=== PATIENT | male | born 1960 | race Caucasian/White ===

== ENCOUNTER 2019-03-20 12:16 | Emergency (ER) | payer SELFPAY ==
[~2019-03-20] VITALS: Ht 172.7 cm; Wt 87.1 kg
[~2019-03-20 12:16] MED LIST: HYDR-2145 PO; LOSA100T14 PO; METF10007 PO
--- NOTE | 2019-03-20 12:59 | PHYS DOC ---
Past Medical History Past Medical History: Diabetes-Type II, Hypertension, Other Additional Past Medical Histor: SVT Additional Past Surgical Histo: cataracts, cardiac ablation, hernia, rotator cuff, carpal tunnel Smokin Pack Per Day Alcohol Use: Heavy Drug Use: None Adult General Chief Complaint Chief Complaint: SHORTNESS OF BREATH HPI HPI Pt is a 58 YO M with PMH of chronic pain, cervical stenosis, and HTN that is presenting to the ED with a chief complaint of increasing pain and SOB. Pt states that he has not felt well since discharge from his last hospital stay a couple months ago. Pt does not have insurance and was unable to follow up for physical therapy and pain management, pt was also diagnosed with HF at that time. Pt states that he is presenting today because the pain and SOB have gotten out of control. Pt reports increasing numbness and tingling of his hands and feet. Pt denies loss of bowel or bladder function, saddle anesthesia, and pt denies increased LE edema. Pt was discharged with norco but those don't help with the pain, nothing makes the pain better or worse. Pt denies any new falls or trauma. Review of Systems Review of Systems Constitutional: Denies fever or chills Eyes: Denies redness or eye pain HENT: Denies nasal congestion or sore throat Respiratory: Denies cough, reports increasing shortness of breath Cardiovascular: Denies chest pain or palpitations GI: Denies nausea and vomiting, reports mild abdominal pain : Denies dysuria or hematuria Musculoskeletal: Reports back pain and joint pain Integument: Denies rash or skin lesions Neurologic: Denies headache, focal weakness or sensory changes Complete systems were reviewed and found to be within normal limits, except as documented in this note. Current Medications Current Medications Current Medications Medications (Trade) Dose Ordered Sig/Tip Start Time Stop Time Status Last Admin Dose Admin Dexamethasone Sodium Phosphate (Decadron) 10 mg 1X ONCE 03/20/19 13:30 03/20/19 13:31 DC 03/20/19 13:03 10 MG Fentanyl Citrate (Fentanyl 2ml Vial) 100 mcg STK-MED ONCE 03/20/19 14:14 03/20/19 14:15 DC Ketorolac Tromethamine (Toradol 15mg Vial) 15 mg 1X ONCE 03/20/19 13:30 03/20/19 13:31 DC 03/20/19 13:02 15 MG Magnesium Chloride (Mag Delay) 64 mg 1X ONCE 03/20/19 14:15 03/20/19 14:16 DC 03/20/19 13:57 64 MG Orphenadrine Citrate (Norflex) 60 mg 1X ONCE 03/20/19 13:30 03/20/19 13:31 DC 03/20/19 13:03 60 MG Allergies Allergies Allergies Coded Allergies Type Severity Reaction Last Updated Verified No Known Drug Allergies 03/02/19 No Physical Exam Physical Exam Constitutional: Well developed, well nourished, no acute distress, non-toxic appearance HENT: Normocephalic, atraumatic, oropharynx moist Eyes: PERRL, EOMI, conjunctiva normal, no discharge Neck: Normal range of motion, no tenderness, supple Cardiovascular: Heart rate normal, regular rhythm Lungs & Thorax: Bilateral breath sounds clear to auscultation, no wheezing Abdomen: Soft, mild generalized abdominal tenderness, non-distended, non- peritoneal Skin: Warm, dry, no erythema, no rash Back: Cervical paraspinal tenderness, no midline tenderness Extremities: No tenderness, ROM intact, no edema Neurologic: Alert and oriented X 3, normal motor function, normal sensory function, no focal deficits noted Psychologic: Affect normal, judgement normal, mood normal Current Patient Data Vital Signs Vital Signs Date Time Temp Pulse Resp B/P (MAP) Pulse Ox O2 Delivery O2 Flow Rate FiO2 03/20/19 14:20 85 18 144/85 (104) 97 03/20/19 12:30 Room Air Lab Values Laboratory Tests Test 03/20/19 12:55 White Blood Count 9.6 x10^3/uL (4.0-11.0) Red Blood Count 4.00 x10^6/uL (4.30-5.70) L Hemoglobin 12.7 g/dL (13.0-17.5) L Hematocrit 39.2 % (39.0-53.0) Mean Corpuscular Volume 98 fL (79-100) Mean Corpuscular Hemoglobin 32 pg (25-35) Mean Corpuscular Hemoglobin Concent 32 g/dL (31-37) Red Cell Distribution Width 17.1 % (11.5-14.5) H Platelet Count 362 x10^3/uL (140-400) Neutrophils (%) (Auto) 70 % (31-73) Lymphocytes (%) (Auto) 23 % (24-48) L Monocytes (%) (Auto) 6 % (0-9) Eosinophils (%) (Auto) 1 % (0-3) Basophils (%) (Auto) 0 % (0-3) Neutrophils # (Auto) 6.7 x10^3/uL (1.8-7.7) Lymphocytes # (Auto) 2.2 x10^3/uL (1.0-4.8) Monocytes # (Auto) 0.6 x10^3/uL (0.0-1.1) Eosinophils # (Auto) 0.1 x10^3/uL (0.0-0.7) Basophils # (Auto) 0.0 x10^3/uL (0.0-0.2) Sodium Level 139 mmol/L (136-145) Potassium Level 3.5 mmol/L (3.5-5.1) Chloride Level 100 mmol/L (98-107) Carbon Dioxide Level 26 mmol/L (21-32) Anion Gap 13 (6-14) Blood Urea Nitrogen 10 mg/dL (8-26) Creatinine 0.7 mg/dL (0.7-1.3) Estimated GFR (Cockcroft-Gault) 116.7 BUN/Creatinine Ratio 14 (6-20) Glucose Level 130 mg/dL (70-99) H Lactic Acid Level 1.7 mmol/L (0.4-2.0) Calcium Level 9.3 mg/dL (8.5-10.1) Magnesium Level 1.3 mg/dL (1.8-2.4) L Total Bilirubin 1.1 mg/dL (0.2-1.0) H Aspartate Amino Transferase (AST) 18 U/L (15-37) Alanine Aminotransferase (ALT) 9 U/L (16-63) L Alkaline Phosphatase 76 U/L (46-116) Creatine Kinase 16 U/L (39-308) L Creatine Kinase MB (Mass) 0.6 ng/mL (0.0-3.6) Creatine Kinase MB Relative Index % (0-4) Troponin I Quantitative < 0.017 ng/mL (0.000-0.055) UD-Vmd-N-Type Natriuretic Peptide 5255 pg/mL (0-124) H Total Protein 7.1 g/dL (6.4-8.2) Albumin 3.4 g/dL (3.4-5.0) Albumin/Globulin Ratio 0.9 (1.0-1.7) L Lipase 118 U/L (73-393) Laboratory Tests 03/20/19 12:55 Laboratory Tests 03/20/19 12:55 EKG EKG EKG @ 1232 shows normal sinus rhythm at 96 BPM, old LBBB, left axis deviation and no ST elevations. Radiology/Procedures Radiology/Procedures PROCEDURE: PORTABLE CHEST 1V EXAM: Chest, single view. HISTORY: Shortness of air. COMPARISON: 03/02/2019. FINDINGS: A frontal view of the chest obtained. There is no infiltrate, pleural effusion or pneumothorax. The heart is normal in size. 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 IMPRESSION: No acute pulmonary finding. Electronically signed by: Yahaira Avila MD (03/20/2019 1:11 PM) [facility] [place] Course & Med Decision Making Course & Med Decision Making Pertinent Labs and Imaging studies reviewed. (See chart for details) Pt is a 58 YO M with a PMH of chronic pain, HTN, HF, and cervical stenosis that is presenting to the ED with increasing pain and SOB. Pt was seen and evaluated at bedside. Physical exam was significant for mild generalized abdominal tenderness, no midline back tenderness, cervical paraspinal tenderness, no LE edema. Labs and imaging ordered. EKG @ 1232 shows normal sinus rhythm at 96 BPM, old LBBB, left axis deviation and no ST elevations. Chest x-ray without acute process. Labs at baseline. Pain addressed. Patient stable for discharge with outpatient follow-up with PCP. Discussed findings and plan with patient and family, who acknowledge understanding and agreement. Dragon Disclaimer Dragon Disclaimer This electronic medical record was generated, in whole or in part, using a voice recognition dictation system. Departure Departure Impression: Primary Impression: Chronic pain Disposition: 01 HOME, SELF-CARE Condition: STABLE Referrals: DARLYN BRODERICK MD (PCP) FERMIN MARR MD Patient Instructions: Chronic Pain, Chronic Pain Management-Brief Scripts Sennosides/Docusate Sodium (Colace 2-in-1 Tablet) 1 Each Tablet 1 TAB PO QHS for 30 Days, #30 TAB 0 Refills Prov: BUDDY MONTANO DO 03/20/19 Prednisone (PREDNISONE) 20 Mg Tablet 2 TAB PO DAILY, #10 TAB Prov: BUDDY MONTANO DO 03/20/19 Orphenadrine Citrate (ORPHENADRINE CITRATE) 100 Mg Tablet.er 100 MG PO BID PRN for MUSCLE PAIN, #14 TAB Prov: BUDDY MONTANO DO 03/20/19 Oxycodone/Apap 5-325 (PERCOCET 5-325 MG TABLET ) 1 Each Tablet 0.5-1 TAB PO PRN Q6HRS PRN for PAIN, #10 TAB 0 Refills Prov: BUDDY MONTANO DO 03/20/19 Problem Qualifiers Primary Impression: Chronic pain Chronic pain type: other chronic pain Qualified Codes: G89.29 - Other chronic pain BUDDY MONTANO DO Mar 20, 2019 12:58
--- NOTE | 2019-03-20 13:14 | RAD ---
EXAM: Chest, single view. HISTORY: Shortness of air. COMPARISON: 03/02/2019. FINDINGS: A frontal view of the chest obtained. There is no infiltrate, pleural effusion or pneumothorax. The heart is normal in size. 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 IMPRESSION: No acute pulmonary finding. Electronically signed by: Yahaira Avila MD (03/20/2019 1:11 PM) [facility] [place]
[2019-03-20 13:20] LABS: BASO % 0 % (0-3); EOS # 0.1 x10^3/uL (0.0-0.7); EOS % 1 % (0-3); HEMATOCRIT 39.2 % (39.0-53.0); HEMOGLOBIN 12.7 g/dL (13.0-17.5); LYMPH # 2.2 x10^3/uL (1.0-4.8); LYMPH % 23 % (24-48); MEAN CORPUSCULAR HEMOGLOBIN 32 pg (25-35); MEAN CORPUSCULAR HGB CONC 32 g/dL (31-37); MEAN CORPUSCULAR VOLUME 98 fL (79-100); MONO # 0.6 x10^3/uL (0.0-1.1); MONO % 6 % (0-9); NEUT # 6.7 x10^3/uL (1.8-7.7); NEUT % 70 % (31-73); PLATELET COUNT 362 x10^3/uL (140-400); RED CELL DISTRIBUTION WIDTH 17.1 % (11.5-14.5); WHITE BLOOD COUNT 9.6 x10^3/uL (4.0-11.0)
[2019-03-20 13:28] LABS: CALCIUM 9.3 mg/dL (8.5-10.1); CREATININE 0.7 mg/dL (0.7-1.3); GFR 116.7; POTASSIUM 3.5 mmol/L (3.5-5.1)
[2019-03-20] MEDS ORDERED: DEXAMETHASONE SOD PHOS 4 MG/ML VIAL IVP ONE (13:30)
[2019-03-20] MEDS ORDERED: KETOROLAC 15 MG/ML VIAL. IVP ONE (13:30)
[2019-03-20] MEDS ORDERED: ORPHENADRINE CITRATE 60 MG/2 ML VIAL. IV ONE (13:30)
[2019-03-20 13:33] LABS: ALBUMIN 3.4 g/dL (3.4-5.0); ALBUMIN/GLOBULIN RATIO 0.9 (1.0-1.7); MAGNESIUM 1.3 mg/dL (1.8-2.4); TOTAL BILIRUBIN 1.1 mg/dL (0.2-1.0); TOTAL PROTEIN 7.1 g/dL (6.4-8.2)
[2019-03-20 13:40] LABS: CREATINE KINASE 16 U/L (39-308)
--- NOTE | 2019-03-20 13:45 | EKG ---
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
[2019-03-20] MEDS ORDERED: fentaNYL PF VIAL 100 MCG/2 ML VIAL ONE (14:14)
[2019-03-20] MEDS ORDERED: PRED20TA PO (14:15)
[2019-03-20] MEDS ORDERED: MAGNESIUM CHLORIDE ER 64 MG TABLET.ER PO ONE (14:15)
[2019-03-20] MEDS ORDERED: SENN-121 PO (14:15)
[2019-03-20] MEDS ORDERED: OXYC1TAB15 PO (14:15)
[2019-03-20] MEDS ORDERED: ORPH100T PO (14:15)
[2019-03-20 14:20] VITALS: BP 144/85
[2019-03-20] MEDS ORDERED: fentaNYL PF VIAL 100 MCG/2 ML VIAL IV ONE (14:30)
== END 2019-03-20 14:25 | disposition home or self-care (01) ==
LOC: ER 12:16
DX: G89.29 Other chronic pain (principal); M54.2 Cervicalgia; R10.84 Generalized abdominal pain; E11.9 Type 2 diabetes mellitus without complications; I10 Essential (primary) hypertension; F17.200 Nicotine dependence, unspecified, uncomplicated; F10.10 Alcohol abuse, uncomplicated; Z98.890 Other specified postprocedural states; Z79.899 Other long term (current) drug therapy
CPT/HCPCS: 36415; 71045; 80053; 82553; 83605; 83690; 83735; 83880; 84484; 85025; 93005; 96374; 96375; 99285; J1100; J1885; J2360; J3010

== ENCOUNTER 2019-10-21 13:44 | Emergency (ER) | payer SELFPAY ==
[~2019-10-21] VITALS: Ht 172.7 cm; Wt 70.9 kg
[~2019-10-21 13:44] MED LIST changes: +ORPH100T PO; +OXYC1TAB15 PO; +PRED20TA PO; +SENN-121 PO
[2019-10-21] MEDS: KETOROLAC 30 MG/ML VIAL. IVP ONE (14:34)
[2019-10-21 14:40] LABS: BASO # 0.1 x10^3/uL (0.0-0.2); BASO % 1 % (0-3); EOS % 0 % (0-3); HEMATOCRIT 55.6 % (39.0-53.0); HEMOGLOBIN 19.3 g/dL (13.0-17.5); LYMPH # 1.8 x10^3/uL (1.0-4.8); LYMPH % 14 % (24-48); MEAN CORPUSCULAR HEMOGLOBIN 35 pg (25-35); MEAN CORPUSCULAR HGB CONC 35 g/dL (31-37); MEAN CORPUSCULAR VOLUME 102 fL (79-100); MONO # 0.9 x10^3/uL (0.0-1.1); MONO % 7 % (0-9); NEUT # 10.1 x10^3/uL (1.8-7.7); NEUT % 78 % (31-73); PLATELET COUNT 311 x10^3/uL (140-400); RED BLOOD COUNT 5.47 x10^6/uL (4.30-5.70); RED CELL DISTRIBUTION WIDTH 13.9 % (11.5-14.5)
--- NOTE | 2019-10-21 14:48 | PHYS DOC ---
Past Medical History Past Medical History: Diabetes-Type II, Hypertension, Other Additional Past Medical Histor: SVT,NEUROPATHY Past Surgical History: Other Additional Past Surgical Histo: cataracts, cardiac ablation, hernia, rotator cuff, carpal tunnel Smoking Status: Current Every Day Smoker Alcohol Use: Heavy Drug Use: None General Adult EDM: Chief Complaint: PAIN CONTROL HPI: HPI: Patient is a 59 year old male who presents with multiple complaints. Patient states that his problems initially started last February when he developed back pain and has since had issues with walking. He states he has stenosis in his back which is the cause of this. He has been on Neurontin since that time which no longer helps with his pain. He states over the last several weeks he is developed abdominal pain which is gotten significantly worse over the last week. He states he never feels like eating and has so much difficulty getting up and moving around that he often does not eat. He is lost 15 pounds over the last several months. Over the last 3 days he has developed cough and shortness of breath. This has progressively been getting worse. He has burning pains in his hands and feet. He states he is miserable and that this pain is too much. He has been taking oxycodone at home for his pain. Review of Systems: Review of Systems: General: Denies fever, chills, sweats. Reports fatigue Eyes: Denies drainage, blurred vision, eye redness HENT: Denies rhinorrhea, sore throat, earache Respiratory: Reports cough, shortness of breath Cardiac: Denies edema, palpitations. Reports chest pain GI: Reports abdominal pain, Nausea, vomiting, weight loss MSK: D reports back pain, diffuse pain Skin: Denies rash, jaundice Neuro: Denies headache, dizziness Psychiatric: Denies SI/HI Heart Score: Risk Factors: Risk Factors: DM, Current or recent (<one month) smoker, HTN, HLP, family history of CAD, obesity. Risk Scores: Score 0 - 3: 2.5% MACE over next 6 weeks - Discharge Home Score 4 - 6: 20.3% MACE over next 6 weeks - Admit for Clinical Observation Score 7 - 10: 72.7% MACE over next 6 weeks - Early Invasive Strategies Current Medications: Current Medications Medications (Trade) Dose Ordered Sig/Tip Start Time Stop Time Status Last Admin Dose Admin Ketorolac Tromethamine (Toradol 30mg Vial) 30 mg 1X ONCE 10/21/19 14:30 10/21/19 14:31 Allergies: Allergies: Allergies Coded Allergies Type Severity Reaction Last Updated Verified No Known Drug Allergies 03/02/19 No Physical Exam: PE: General: Awake, alert, NAD. Well Nourished, well hydrated. Cooperative HEENT: Atraumatic, EOMI, PERRL, airway patent, moist oral mucosa Neck: Supple, trachea midline Respiratory: CTA bilaterally, normal effort, no wheezing/crackles CV: Tachycardia, no murmur, cap refill <2 GI: Soft, left-sided tenderness, nondistended MSK: No obvious deformities Skin: Warm, dry, intact Neuro: A&O x3, speech NL, sensory and motor grossly intact, no focal deficits Psych: Anxious d, not suicidal or homicidal Current Patient Data: Vital Signs: Vital Signs Date Time Temp Pulse Resp B/P (MAP) Pulse Ox O2 Delivery O2 Flow Rate FiO2 10/21/19 13:51 97.9 65 20 155/99 (117) 96 Room Air 97.9 EKG: EKG: [] Radiology/Procedures: Radiology/Procedures: [] Course & Med Decision Making: Course & Med Decision Making Pertinent Labs and Imaging studies reviewed. (See chart for details) Patient is a 59-year-old male who presents to the emergency room with multiple complaints. Given patient shortness of breath, weight loss, abdominal pain, nausea, vomiting there is concern for possible cancer. It is also possible that he could have an infection such as the novel coronavirus. At this time a full work-up was ordered including a CT chest, abdomen, pelvis. Labs were ordered including CBC, CMP, lipase, UA, coronavirus screen. Dragon Disclaimer: Dragon Disclaimer: This electronic medical record was generated, in whole or in part, using a voice recognition dictation system. Departure Departure Referrals: ALEJANDRO MARTINEZ (PCP) Justicifation of Admission Dx: Justifications for Admission: Justification of Admission Dx: Yes DANA CUEVA MD Oct 21, 2019 14:48
[2019-10-21 14:49] LABS: CALCIUM 9.4 mg/dL (8.5-10.1); CREATININE 0.7 mg/dL (0.7-1.3); GFR 116.2; POTASSIUM 3.7 mmol/L (3.5-5.1)
[2019-10-21 14:56] LABS: ALBUMIN 3.4 g/dL (3.4-5.0); ALBUMIN/GLOBULIN RATIO 0.9 (1.0-1.7); TOTAL PROTEIN 7.3 g/dL (6.4-8.2)
--- NOTE | 2019-10-21 14:59 | EKG ---
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
[2019-10-21] MEDS ORDERED: CONTRAST GIVEN. MC PRN (15:15)
[2019-10-21] MEDS: IOHEXOL 300 MG/ML 100ML VIAL. IV ONE (15:23)
--- NOTE | 2019-10-21 15:51 | RAD ---
CT scan of the chest, abdomen and pelvis with contrast 12/21/2019 CLINICAL HISTORY: Shortness of breath, chest pain, abdominal pain and weight loss. TECHNIQUE: After the intravenous ministration 75 cc of Omnipaque 300 only, contiguous, 5 mm axial sections were obtained through the chest, abdomen and pelvis. One or more of the following individualized dose reduction techniques were utilized for this study: 1. Automated exposure control. 2. Adjustment of the mA and/or kV according to patient size. 3. Use of iterative reconstruction technique. FINDINGS: Mild scattered atherosclerotic calcification of the thoracic aorta and its branches is seen. The thoracic aorta tapers normally. The heart is normal in size. Likely reactive mediastinal lymph nodes are seen which measure 5 mm to 1.2 cm in size. No hilar, mediastinal or axillary lymphadenopathy is seen. No pulmonary infiltrate, pleural effusion, pneumothorax or pulmonary mass is seen. The liver, spleen, pancreas, and adrenal glands are within normal limits. Rounded low-attenuation lesions are seen involving both kidneys which measure 5 mm to 1.1 cm in size. These likely represent cysts. No further imaging workup is recommended. Atherosclerotic calcification abdominal aorta and its branches is seen. The gallbladder is well-distended. No free fluid or free air is seen within the abdomen. There is no evidence of bowel obstruction. The appendix is well-visualized and is within normal limits. What appears to be a 2 cm diverticulum is seen projecting posteriorly from the gastric fundus. The appendix is well-visualized and is within normal limits. No retroperitoneal lymphadenopathy is seen. Images through the pelvis demonstrate the urinary bladder distended with urine. A small fat-containing right inguinal hernia is seen which measures 3 cm in size. No free fluid is noted. No pelvic or inguinal lymphadenopathy is seen. Very mild S-shaped curvature of the thoracolumbar spine is seen. Degenerative changes are seen involving the thoracic and throughout the lumbar spine along with both hips. IMPRESSION: No acute abnormality is seen. Electronically signed by: Owen Ibarra MD (10/21/2019 3:48 PM) [id number]
[2019-10-21 16:20] VITALS: BP 167/90
[2019-10-21 16:21] LABS: BILIRUBIN,URINE MODERATE (NEG); CLARITY,URINE CLEAR; COLOR,URINE AMBER; NITRITE,URINE NEGATIVE (NEG); PROTEIN,URINE 100 mg/dL (NEG-TRACE)
[2019-10-21] MEDS: IV NORMAL SALINE 1000ML BAG 1,000 ML IV ONE (16:22)
[2019-10-21 16:24] LABS: BACTERIA,URINE 0 /HPF (0-FEW); HYALINE CASTS, URINE MODERATE /HPF; RBC,URINE OCC /HPF (0-2); WBC,URINE OCC /HPF (0-4)
[2019-10-21] MEDS ORDERED: SUCR1TAB35 PO (16:53)
== END 2019-10-21 17:22 | disposition home or self-care (01) ==
LOC: ER 13:44
DX: R10.9 Unspecified abdominal pain (principal); Z20.828 Contact with and (suspected) exposure to other viral communicable diseases; R11.2 Nausea with vomiting, unspecified; R06.02 Shortness of breath; F41.9 Anxiety disorder, unspecified; M54.89 Other dorsalgia; K40.90 Unilateral inguinal hernia, without obstruction or gangrene, not specified as recurrent; R00.0 Tachycardia, unspecified; E11.40 Type 2 diabetes mellitus with diabetic neuropathy, unspecified; I10 Essential (primary) hypertension; F17.200 Nicotine dependence, unspecified, uncomplicated; F10.20 Alcohol dependence, uncomplicated; Y90.9 Presence of alcohol in blood, level not specified
CPT/HCPCS: 36415; 71260; 74177; 80053; 81001; 82550; 85025; 93005; 96361; 96374; 99285; J1885; J7030; Q9967; U0003

== ENCOUNTER → 2020-11-22 | Outpatient (CLI) | payer OTHER ==
[~2020-11-22] MED LIST changes: +SUCR1TAB35 PO
--- NOTE | 2020-11-22 13:34 | RAD ---
AP and Lateral Views of the Chest 11/22/2020 9:07 AM Indication: Reason: CHF / Spl. Instructions: / History: Comparison: Chest radiograph March 20, 2020 he Findings: There is no focal consolidation or infiltrate identified. Heart size is normal. No signific ant central vascular congestion is identified. There is no evidence of pneumothorax or pleural effusi on. No acute osseous abnormalities are identified. Impression: No evidence of acute cardiopulmonary process. Electronically signed by: Isac Moody MD (11/22/2020 1:32 PM) [id number]
== END ==
LOC: RAD 08:50
PROVIDERS: ATTEND Family Medicine
DX: Z02.71 Encounter for disability determination (principal); I50.22 Chronic systolic (congestive) heart failure
CPT/HCPCS: 71046